=== PATIENT | female | born 1980 | race Caucasian/White ===

== ENCOUNTER 2018-05-08 14:23 | Emergency (ER) | payer SELFPAY, MEDICAID ==
[2018-05-08] MEDS: METOCLOPRAMIDE 10 MG TAB PO (15:44)
[2018-05-08] MEDS: DIPHENHYDRAMINE 50 MG CAP PO (15:44)
[2018-05-08] MEDS: KETOROLAC 60 MG INJ IM (15:47)
== END 2018-05-08 17:32 | disposition left against medical advice (07) ==
LOC: FTE 14:23
DX: S06.0X0A Concussion without loss of consciousness, initial encounter (principal); Y04.8XXA Assault by other bodily force, initial encounter
CPT/HCPCS: 70450; 81025; 96372; 99285-25